=== PATIENT | female | born 1945 | race Caucasian/White ===

== ENCOUNTER → 2016-06-25 | Outpatient (CLI) | payer MEDICARE ==
[~2016-06-25] MED LIST: ALBUTEROL0.63 MG/3 INH; ASPIR 8181 MG PO; CELEBREX200 MG PO; CYMBALTA60 MG PO; ENTOCORT EC3 MG PO; FLAGYL500 MG PO; GLIMEPIRIDE1 MG PO; IBUPROFEN800 MG PO; IFEREX 150150 MG PO; JANUVIA100 MG PO; LAMICTAL TAB 1100 MG PO; LEVOTHYROXINE88 MCG PO; LIPITOR TAB 2020 MG PO; LISINOPRIL10 MG PO; LOMOTIL 2.5-0.1 EACH PO; MYRBETRIQ25 MG PO; PRILOSEC OTC20 MG PO; PROVENTIL HFA 61 INH INH; TYLENOL 325MG325 MG PO; ULTRAM50 MG PO; VALIUM5 MG PO; ZOFRAN4 MG PO
== END ==
LOC: US 09:07
DX: N39.0 Urinary tract infection, site not specified (principal)

== ENCOUNTER → 2020-08-28 | Outpatient (CLI) | payer MEDICARE ==
[~2020-08-28] MED LIST changes: +ALL DAY ALLERGY10 M2 PO; +CARDIZEM CD180 MG PO; +CEFDINIR300 MG PO; +CELEBREX 200MG200 MG PO; +COLACE 100MG C100 MG PO; +DILTIAZEM 24HR120 MG PO; +ELIQUIS5 MG PO; +FLORANEX GRANU1 EACH PO; +HIPREX1 GM PO; +IMDUR ER TAB 3030 MG PO; +IMDUR ER TAB 6060 MG PO; +K-DUR TAB 20 M20 MEQ PO; +LAMOTRIGINE100 MG PO; +LASIX20 MG PO; +MIRALAX17 GM PO; +MIRAPEX1 MG PO; +MULTAQ 400 MG400 MG PO; +MULTAQ400 MG PO; +MYCOSTATIN100000 UTS PO; +MYRBETRIQ PO; +NEXIUM40 MG PO; +OMNICEF 300 MG300 MG PO; +PRINIVIL20 MG PO; +PRO AIR INH; +REMERON15 MG PO; +SPIRIVA RESPIMAT4 GM INH; +SYNTHROID88 MCG PO; +TRESIBA SQ; +VALIUM 5 MG TAB5 MG PO; +VANCOMYCIN HCL125 MG PO; +VENTOLIN/PROVE0.5 ML INH; +VIT C PO; +VITAMIN C 500500 MG PO; +VITAMIN D35000 UNIT PO
== END ==
LOC: KOH-I 10:50
DX: F02.80 Dementia in other diseases classified elsewhere, unspecified severity, without behavioral disturbance, psychotic disturbance, mood disturbance, and anxiety (principal); M19.042 Primary osteoarthritis, left hand; M19.041 Primary osteoarthritis, right hand; S03.01XA Dislocation of jaw, right side, initial encounter
CPT/HCPCS: 70450; 73130

== ENCOUNTER 2021-03-03 08:22 | Emergency (ER) | payer MEDICARE ==
[2021-03-03 09:56] LABS: HEMOGLOBIN 11.5 gm/dl (12.3-15.3); RED BLOOD COUNT 5.17 M/UL (4.00-5.10)
[2021-03-03 10:21] LABS: BUN/CREATININE RATIO 15 (0-10)
[2021-03-03] MEDS ORDERED: MIRALAX17 GM PO (14:25)
[2021-03-03] MEDS ORDERED: ZOFRAN ODT 4 MG4 MG SL (14:25)
[2021-03-03] MEDS ORDERED: MACROBID 100 M100 MG PO (14:25)
[2021-03-03] MEDS ORDERED: TERCONAZOLE20 GM VG (15:49)
== END 2021-03-03 14:39 | disposition home or self-care (01) ==
LOC: ER1 08:22
PROVIDERS: Nurse Practitioner
DX: N39.0 Urinary tract infection, site not specified (principal); K59.00 Constipation, unspecified; Z20.822 Contact with and (suspected) exposure to COVID-19; E11.9 Type 2 diabetes mellitus without complications; Z79.4 Long term (current) use of insulin; Z79.84 Long term (current) use of oral hypoglycemic drugs; I10 Essential (primary) hypertension; Z88.8 Allergy status to other drugs, medicaments and biological substances
CPT/HCPCS: 0240U; 71045; 80053; 81001; 82550; 82553; 83605; 83690; 84484; 85025; 87077; 87086; 87186; 93005; 94760; 96374; 96375; 99285; C9113; J2405; Q9967

== ENCOUNTER → 2021-06-09 | Outpatient (CLI) | payer MEDICARE ==
[~2021-06-09] MED LIST changes: +MACROBID 100 M100 MG PO; +TERCONAZOLE20 GM VG; +ZOFRAN ODT 4 MG4 MG SL
== END ==
LOC: LAB 15:32
PROVIDERS: Internal Medicine
DX: D72.9 Disorder of white blood cells, unspecified (principal)
CPT/HCPCS: 36415; 88184; 88185

== ENCOUNTER 2021-06-24 10:26 | Inpatient (IN) | payer MEDICARE ==
[~2021-06-24] VITALS: Ht 162.6 cm; Wt 105.7 kg
[2021-06-24 11:52] LABS: HEMOGLOBIN 13.4 gm/dl (12.3-15.3); RED BLOOD COUNT 5.32 M/UL (4.00-5.10); WHITE BLOOD COUNT 19.8 K/UL (4.5-11.0)
[2021-06-24] MEDS ORDERED: MYCOSTATIN100000 UTS PO (18:47)
[2021-06-24] MEDS ORDERED: LINZESS145 MCG PO (18:47)
[2021-06-24] MEDS ORDERED: BUDESONIDE EC3 MG PO (18:48)
[2021-06-24] MEDS ORDERED: ONDANSETRON HCL4 MG PO (18:48)
[2021-06-24] MEDS ORDERED: POTASSIUM CHLO20 ME2 PO (18:49)
[2021-06-24] MEDS ORDERED: ENTRESTO 24 MG1 EACH PO (18:49)
[2021-06-24] MEDS ORDERED: AMARYL1 MG PO (18:50)
[2021-06-24] MEDS ORDERED: TROSPIUM CHLORI20 MG PO (18:50)
[2021-06-24] MEDS ORDERED: DONEPEZIL HCL5 MG PO (18:51)
[2021-06-24] MEDS ORDERED: LOPERAMIDE2 MG PO (18:51)
[2021-06-24] MEDS ORDERED: BENZONATATE100 MG PO (18:51)
--- NOTE | 2021-06-25 03:19 | NUR ---
APPROX 2240 WAFFLE MATTRESS ADDED TO PATIENT BED. SHE HAD COMPLAINTS OF BED HURTING HER BACK AND BEING IN A HOLE. PT ALSO REFUSES TO WEAR YELLOW GOWN AND SOCKS DUE TO HER BEING TO HOT. TEMPERATURE HAS BEEN TURNED DOWN LOW THERMOSTAT CAN GO. DOOR HAS BEEN LEFT OPEN AND SHUT TO SEE WHICH WAY THE ROOM STAYS COOLER FOR PT.
[2021-06-25 04:02] LABS: HEMOGLOBIN 12.1 gm/dl (12.3-15.3); RED BLOOD COUNT 4.85 M/UL (4.00-5.10); WHITE BLOOD COUNT 19.2 K/UL (4.5-11.0)
[2021-06-26 12:14] LABS: HEMOGLOBIN 11.9 gm/dl (12.3-15.3); RED BLOOD COUNT 4.78 M/UL (4.00-5.10); WHITE BLOOD COUNT 15.5 K/UL (4.5-11.0)
[2021-06-26 12:29] LABS: BUN/CREATININE RATIO 22 (0-10)
[2021-06-27 06:26] LABS: HEMOGLOBIN 11.4 gm/dl (12.3-15.3); RED BLOOD COUNT 4.54 M/UL (4.00-5.10); WHITE BLOOD COUNT 13.7 K/UL (4.5-11.0)
[2021-06-27 07:28] LABS: BUN/CREATININE RATIO 19 (0-10)
--- NOTE | 2021-06-28 19:27 | NUR ---
DARRYL CAME AND GOT ME STATED THAT PATIENT WAS LEFT SITTING ON SIDE OF THE BED AND SHE FELT UNSTEADY. UPON ENTERING THE ROOM THE PATIENT WAS SITTING ON THE SIDE OF THE BED A&O TALKING ON HER CELL PHONE WITH THE CALL BRIDGES IN HAND. PATIENT STATED SHE WAS MOVED FROM ROOM 5127 AND LEFT SITTING BY FINA AND TOLD SHE WOULD BE RIGHT BACK TO MOVE HER TO THE CHAIR. DURING SHIFT REPORT PATIENT WAS SITTING ON SIDE OF BED AND HAD NO COMPLAINTS OR NEEDS AT THAT TIME. HAROLDO AND I WENT AND AMBULATED THE PATIENT TO THE CHAIR AND MOVED ALL OF HER BELONGING WITHIN REACH. SHE WAS ANXIOUS AND AFTER TALKING WITH HER SHE BEGAN TO RELAX. HER FEET ARE ELEVATED WITH STOOL AND PILLOW AND HER CALL BRIDGES IS WITHIN REACH.
[2021-06-29] MEDS ORDERED: SENNA LAX8.6 MG PO (11:26)
[2021-06-29] MEDS ORDERED: MILK OF MA400 MG/5 M PO (11:26)
--- NOTE | 2021-06-29 13:07 | NUR ---
REPORT CALLED TO REINA AT [facility]
== END 2021-06-29 13:55 | DRG 683 ==
LOC: ER1 10:26 → CDU 17:33 → M/S 17:33
PROVIDERS: Physician Assistant; ADMIT Internal Medicine
DX: N17.9 Acute kidney failure, unspecified (principal); N30.00 Acute cystitis without hematuria; Z20.822 Contact with and (suspected) exposure to COVID-19; I50.32 Chronic diastolic (congestive) heart failure; Z68.41 Body mass index [BMI] 40.0-44.9, adult; R55 Syncope and collapse; E86.0 Dehydration; I48.0 Paroxysmal atrial fibrillation; I27.20 Pulmonary hypertension, unspecified; J44.9 Chronic obstructive pulmonary disease, unspecified; B96.20 Unspecified Escherichia coli [E. coli] as the cause of diseases classified elsewhere; G89.29 Other chronic pain; E78.5 Hyperlipidemia, unspecified; E66.01 Morbid (severe) obesity due to excess calories; M54.9 Dorsalgia, unspecified; Z96.652 Presence of left artificial knee joint; F41.9 Anxiety disorder, unspecified; K59.00 Constipation, unspecified; F32.A Depression, unspecified; I11.0 Hypertensive heart disease with heart failure; E11.9 Type 2 diabetes mellitus without complications; I48.91 Unspecified atrial fibrillation; Z79.01 Long term (current) use of anticoagulants; Z79.4 Long term (current) use of insulin; Z87.19 Personal history of other diseases of the digestive system; Z82.49 Family history of ischemic heart disease and other diseases of the circulatory system; Z83.3 Family history of diabetes mellitus; Z80.3 Family history of malignant neoplasm of breast; Z88.6 Allergy status to analgesic agent; Z88.1 Allergy status to other antibiotic agents; Z88.5 Allergy status to narcotic agent
CPT/HCPCS: 36415; 70450; 71045; 73030; 80048; 80053; 81001; 82550; 82553; 82962; 83605; 83690; 83880; 84484; 85025; 87040; 87077; 87086; 87186; 93005; 96374; 96375; 97110; 97116; 97116-GP-CQ; 97161; 97165; 97530-GP-CQ; 97535; 99285; J0696; J1940; J2405; J7030; J7120; U0002